=== PATIENT | female | born 1980 | race Caucasian/White ===

== ENCOUNTER 2025-11-18 09:45 | Outpatient (AMB) | payer BC, SELFPAY ==
--- OUTSIDE RECORDS SUMMARY | 2024-12-12 06:30 | XMS_ITS ---
Author Organization [facility] stacey Address [address] [place] [address] Care Team Providers Care Gold Blower Name Role Phone Therese Rodriguez Primary Care Provider [phone] REASON FOR VISIT f/u ADHD Encounters Encounter Location Date Provider Diagnosis [place] [address] [place] [address] 12/12/2024 Therese Rodriguez Plan Of Treatment Next Appt Details Provider Name:Therese Nogueira [facility], 01/22/2026 11:30:00 AM, [address] [place], [address], Provider Name:Therese Nogueira [facility], 04/23/2026 02:00:00 PM, [address] [place], [address], Progress Notes * OCTAVIO ALVAREZDOB: 1980 (45 yo F)Acc No.[id number]:12/12/2024 Progress Note Patient: Jeremy JUAREZOCTAVIO SKELTON Provider: Santa Rodriguez MD :1980 A ge:44 Y S ex:Female Date:12/12/2024 C HN#:[id number] Address:[address], [phone] Subjective: * Chief Complaints: * f /u ADHD Care Plan Details* * Electronic signature of Bea Rodriguez MD on 11/18/2025 at 10:35 AM EST Sign off status: Pending * Provider: Santa Rodriguez MD Date: 0 12/12/2024 Generated for Adriano ramos/Cam/Vika on: 1 01/19/2025 10:35 AM EST
--- OUTSIDE RECORDS SUMMARY | 2025-05-01 09:30 | XMS_ITS ---
Author Organization [facility] Address [address] [place] [address] Care Team Providers Care Laundry Operator Wash Room Name Role Phone MichaelIndiraTherese Primary Care Provider Yazmin RODRIGUEZ Unavailable [phone] REASON FOR VISIT MEDICAL SCIENTIFIC OFFICER BMD Encounters Encounter Location Date Provider Diagnosis [place] [address] [place] [address] 05/01/2025 Yazmin RODRIGUEZ ADHD, combined type F90.2 and Anxiety (unspecified) F41.9 Assessments Encounter Date Diagnosis (ICD Code) Assessment Notes Treatment Notes Treatment Clinical Notes Section Notes 05/01/2025 ADHD, combined type (ICD-10 - F90.2) 05/01/2025 Anxiety (unspecified) (ICD-10 - F41.9) 05/01/2025 Other At least 60 minutes were spent in a face to face interaction with patient conducted by Yazmin Rodriguez [facility]. Please see HPI for full history review and assessment. Pt was oriented to psychiatric care within [facility]. Importance of regular visits and limitations on refills were reviewed. Decision-making was shared with patient and included review of available chart data, discussion of risks and benefits of care plan for suspected diagnosis, and establishment of follow-up plan with precautions to seek immediate medical attention in case of interim treatment failure or adverse developments. Indication for, proper use of, and possible non-target effects of any prescribed treatments were reviewed. All questions were answered. Extensive time spent includes counseling, education, emotional support, patient care coordination, and medical management. Plan Of Treatment Treatment Notes Assessment Notes Other At least 60 minutes were spent in a face to face interaction with patient conducted by YAQUELIN Nolan. Please see HPI for full history review and assessment. Pt was oriented to psychiatric care within [facility]. Importance of regular visits and limitations on refills were reviewed. Decision-making was shared with patient and included review of available chart data, discussion of risks and benefits of care plan for suspected diagnosis, and establishment of follow-up plan with precautions to seek immediate medical attention in case of interim treatment failure or adverse developments. Indication for, proper use of, and possible non-target effects of any prescribed treatments were reviewed. All questions were answered. Extensive time spent includes counseling, education, emotional support, patient care coordination, and medical management. Next Appt Details Provider Name:Therese Black [facility], 01/22/2026 11:30:00 AM, [address] [place], [address], Provider Name:Therese J At [facility], 04/23/2026 02:00:00 PM, [address] [place], [address], History and Physical Notes * HPI (History of Present Illness) Category Sub-Category Detail Notes Category Not es Interim History CC: Past Psychiatric History: Previous outpatient provider: Past Medication Trials: Therapist: Past Psychiatric Hospitalizations: Family psychiatric History: Sleep: Diet: caffeine Exercise: ETOH use: Nicotine use: Substance use: Social History: lives children pets work [employer] Supports: Stressors: 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 ADHD: concentration/focus Anxiety: social phobia, anxiety/panic attacks Mood: PTSD: trauma nightmares, hypervigilance, hyperarousal, flashbacks OCD: intrusive thoughts compulsions Eating Disorder: anorexia, bulimia, binge Bipolar Disorder: grandiosity/sleep decrease/ pressured speech/distractibility/impulsivity Psychosis: hallucinations/delusions/paranoia Previous Suicide Attempts/SIB: (attempts, methods, ideations, plan, preperations, intent) Homicidal Ideation: TBI seizure concussion cardiac history: Past Medical History, medications, and allergies listed in chart reviewed and verified with patient. Progress Notes * JILLIAN ALVAREZ: 1980 (45 yo F)Acc No.[id number]:05/01/2025 Psych-60 Patient: OCTAVIO GARRIDO Provider: Brianne Rodriguez :1980 A ge:44 Y S ex:Female Date:05/01/2025 Address:[address] [place] [address] [place] , [address], [phone] Pcp:Therese Rodriguez Subjective: * Chief Complaints: * N P BMD * HPI: I nterim History: CC: Past Psychiatric History: Previous outpatient provider: Past Medication Trials: Therapist: Past Psychiatric Hospitalizations: Family psychiatric History: Sleep: Diet: caffeine Exercise: ETOH use: Nicotine use: Substance use: Social History: lives children pets work [employer] Supports: Stressors: 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 ADHD: concentration/focus Anxiety: social phobia, anxiety/panic attacks Mood: PTSD: trauma nightmares, hypervigilance, hyperarousal, flashbacks OCD: intrusive thoughts compulsions Eating Disorder: anorexia, bulimia, binge Bipolar Disorder: grandiosity/sleep decrease/ pressured speech/distractibility/impulsivity Psychosis: hallucinations/delusions/paranoia Previous Suicide Attempts/SIB: (attempts, methods, ideations, plan, preperations, intent) Homicidal Ideation: TBI seizure concussion cardiac history: Past Medical History, medications, and allergies listed in chart reviewed and verified with patient. Assessment: * Assessment: 1. A DHD, combined type - F90.2 (Primary) 2 . A nxiety (unspecified) - F41.9 Plan: * Treatment: Billing Information: * Procedure Codes: * Electronic signature of Shruthi RODRIGUEZ , PERPETUAL INVENTORY CLERK on 11/18/2025 at 10:36 AM EST Sign off status: Pending * Provider: Brianne Rodriguez Date: 0 05/01/2025 Generated for Adriano ramos/Cam/Vika on: 01/19/2025 10:36 AM EST
--- OUTSIDE RECORDS SUMMARY | 2025-05-23 10:00 | XMS_ITS ---
Author Organization [facility] stacey Address [address] [place] [address] Care Team Providers Care Airport Duty Manager Name Role Phone Therese Rodriguez Primary Care Provider [phone] Romulo Casiano [phone] REASON FOR VISIT f/u psych Encounters Encounter Location Date Provider Diagnosis [facility] [address] [place] [address] 05/23/2025 Romulo Casiano Plan Of Treatment Next Appt Details Provider Name:Therese Black At [facility], 01/22/2026 11:30:00 AM, [address] [place], [address], Provider Name:Therese Black At [facility], 04/23/2026 02:00:00 PM, [address] [place], [address], Progress Notes * OCTAVIO ALVAREZDOB: 1980 (45 yo F)Acc No.[id number]:05/23/2025 Psych-30 Patient: Jeremy OCTAVIO MANTILLA Provider: Meera Casiano DO :1980 A ge:44 Y S ex:Female Date:05/23/2025 Address:[address] [place] Pcp:Therese Rodriguez Subjective: * Chief Complaints: * F /u psych * Electronic signature of Sally Casiano DO on 11/18/2025 at 10:35 AM EST Sign off status: Pending * Provider: Meera Casiano DO Date: 0 05/23/2025 Generated for Adriano ramos/Cam/Vika on: 1 01/19/2025 10:35 AM EST
--- OUTSIDE RECORDS SUMMARY | 2025-10-21 10:00 | XMS_ITS ---
Author Organization [facility] stacey Address [address] [place] [address] Care Team Providers Care Coating Manager Name Role Phone Therese Rodriguez Primary Care Provider Allergies Allergen (clinical drug ingredient) Drug/Non Drug Allergy documented on EMR Reaction Allergy Type Onset Date Status ADHESIVES (uncoded) burn on skin Allergy Active LATEX SENSITIVE (uncoded) UTI's with catheters; burn sensation on skin Allergy Active zolpidem Ambien drunk dials Drug Allergy Act wendi amoxicillin Amoxicillin nausea & vomiting Drug Allergy Active bacitracin Bacitracin red raised rash Drug Allergy Active eszopiclone Lunesta dizzy, bitter taste, loss of memory Drug Allergy Active Neosporin rash; prevents wound healing Drug Allergy Active paroxetine Paxil diarrhea Drug Allergy Active topiramate Topamax everything taste d off Drug Allergy Active Reason For Referral Reason For bilat paresthesi as and left shoulder weakness Diagnosis 1 Weakness (R53.1) Referral Organization [facility] Pr actice Referring Provider First Name Therese Referring Provider Last Name Michael Referring Provider Speciality Family Pra ctice Referred Provider Manuelito Small Referred Provider Specialty Credit Reporting Clerk General Notes Vaishali Cox 01/2025 12:10:42 PM EST > ref faxed to: [phone] Clinical Notes Name Manuelito Small ecialty Credit Reporting Clerk, Address [address] [place] [address], [address], [place] [address] Provider , , Referral Priority Routine REASON FOR VISIT f/u ADHD, ?hot flashes, ADHD = 38, numbness in bilateral hands, worsening over 1 year, due for covid (checked [facility]), declines Medications Medication SIG (Take, Route, Frequency, Duration) Notes Start Date End Date Status Gabapentin 100 MG Capsule 2 capsule at bedtime Orally Once a day; Duration: 30 days 10/21/2025 Active Estradiol 0.025 MG/24HR Patch Twice Weekly 1 patch to skin Transdermal Two times a Week; Duration: 30 days 10/21/2025 Active Lexapro 5 MG Tablet 1 tablet Orally Once a day; Duration: 90 days 04/25/2025 Active Metoprolol Succinate ER 25 MG Tablet Extended Release 24 Hour TAKE 1 TABLET BY MOUTH EVERY DAY FOR 90 DAYS; Duration: 90 Active Lisinopril 20 MG Tablet TAKE 1 TABLET BY MOUTH EVERY DAY FOR 90 DAYS; Duration: 90 Active Ibuprofen 600 MG Tablet 1 tab(s) orally once a day Active Reglan 10 MG Tablet 1 tab(s) orally 4 ti mes a day (before meals and at bedtime); Duration: 30 day(s) prn migraines Active Vitamin B Complex - Capsule 1 cap Orally intermittently Active Vitamin D-Vitamin K - Capsule as directed Orally intermittently Active Adderall 5 MG Tablet 2 tabs orally 2 times a day; Duration: 30 days As needed 03/07/2024 Active Adderall XR 25 MG Capsule Extended Release 24 Hour 2 cap(s) orally once a day; Duration: 90 days DX ADHD 10/21/2025 Active Gabapentin 100 MG Capsule 2 capsules Orally Once a day Active Social History Social History Additional Details Category Social Info Options Details Social History 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 and sports photography Problems Problem Type SNOMED Code ICD Code Onset Dates Problem Status W/U Status Risk Notes Problem Peripheral vascular disease (001295150) Vasomotor acroparesthesias (I73.89) Active confirmed Problem Menopause (656141987) Menopausal and female climacteric states (N95.1) Active confirmed Vital Signs Temperature 98.7 degrees Fahrenheit 10/21/20 Blood pressure systolic 128 mm Hg 10/21/20 Blood pressure diastolic 70 mm Hg 025 Height 63.5 in 10/21/2025 Weight 152.6 lbs 10/21/2025 BMI 26.6 kg/m2 10/21/2025 Oximetry 97 10/21/2025 Encounters Encounter Location Date Provider Diagnosis [facility] [address] [place] [address] 10/21/2025 Therese Rodriguez Weakness R53.1 ; Vasomotor acroparesthesias I73.89 ; ADHD, combined type F90.2 ; BMI 28.0-28.9, adult Z68.28 and Menopausal and female climacteric states N95.1 Assessments Encounter Date Diagnosis (ICD Code) Assessment Notes Treatment Notes Treatment Clinical Notes Section Notes 10/21/2025 Weakness (ICD-10 - R53.1) ? pinched nerve RUE Chronic Condition stable and controlled. continue same plan with current medication and scheduled reassessment 10/21/2025 Vasomotor acroparesthesias (ICD-10 - I73.89) I am recommending MHT for hormonal therapy perimenopausal Discussed the WHI study and the current understanding of low cardiac risk as long as hormones started within 10 years of menopause. we also discussed We did review FAMHX for ovarian cancer, breast cancer, bleeding or clotting disorders, heart disease. She is regular with her mammograms and plans to continue regularly. no hx clotting or bleeding abnormalities, is active, not a smoker. Discussed the patch which would eliminate the first-pass effect review possible side effects and to call for irregular bleeding or any new symptoms Rx sent for MHT with instructions 10/21/2025 ADHD, combined type (ICD-10 - F90.2) 10/21/2025 BMI 28.0-28.9, adult (ICD-10 - Z68.28) 10/21/2025 Menopausal and female climacteric states (ICD-10 - N95.1) Plan Of Treatment Medication Medication Name Sig Start Date Stop Date Notes Gabapentin 100 MG Capsule 2 capsule at b edtime Orally Once a day; Duration: 30 days 10/21/2025 Estradiol 0.025 MG/24HR Patch Twice Weekly 1 patch to skin Transdermal Two times a Week; Duration: 30 days 10/21/2025 Adderall XR 25 MG Capsule Extended Release 24 Hour 2 cap(s) orally once a day; Duration: 90 days 10/21/2025 DX ADHD Treatment Notes Assessment Notes Weakness ? pinched nerve RUE Chronic Condition stable and controlled. continue same plan with current medication and scheduled reassessment Vasomotor acroparesthesias I am recommending MHT for hormonal therapy perimenopausal Discussed the WHI study and the current understanding of low cardiac risk as long as hormones started within 10 years of menopause. we also discussed We did review FAMHX for ovarian cancer, breast cancer, bleeding or clotting disorders, heart disease. She is regular with her mammograms and plans to continue regularly. no hx clotting or bleeding abnormalities, is active, not a smoker. Discussed the patch which would eliminate the first-pass effect review possible side effects and to call for irregular bleeding or any new symptoms Rx sent for MHT with instructions Referrals Referral Date Details 10/21/2025 10/21/2025, For bila t paresthesias and left shoulder weakness, Manuelito Small Next Appt Details Follow Up: 3 Months fu ADHD? HRT, Reason: Provider Name:Therese Nogueira [facility], 01/22/2026 11:30:00 AM, [address] [place], [address], Provider Name:Therese Nogueira [facility], 04/23/2026 02:00:00 PM, [address] [place], [address], History and Physical Notes * HPI (History of Present Illness) Category Sub-Category Detail Notes Category Not es Cardiology HYPERTENSION Heme/Lymph co episodes of Raynauds Neurology has always had neck pains. getting massages regularly helps some. has had trigger point injections. has numbness in her fingers when it is bad. bilat 4-5 fingers right worse than left. variable Interim History has been having hot flashes lately.. tried stopping the lexapro and it made her worse. she took the leftover gabapentin and restarted the lexapro and the hot flashes are now gone Examination Category Sub-Category Detail Notes Category Not es General Examination HEENT: Head - NC/AT, clear c onjunctiva Neck, Thyroid : supple Lungs: No use of accessory muscles, no audible wheezes, no stridor Extremities: no clubbing, no tonio a General Appearance: Well appearing and i n no acute distress Skin Lips and nail beds p ink Neurologic Exam: non-focal exam Musculoskeletal Normal gait and stat ion Consultation Request Notes Referral Date Referring Provider Referred Provider Not es 10/21/2025 Therese Rodriguez Paul For bila t paresthesias and left shoulder weakness Progress Notes * LUIS GARCIA RAIZAJAHDOB: 1980 (45 yo F)Acc No.[id number]:10/21/2025 Progress Note Patient: OCTAVIO GARRIDO Provider: Santa Rodriguez MD :1980 A ge:45 Y S ex:Female Date:10/21/2025 C HN#:[id number] Address:[address] [place] [address] Subjective: * Chief Complaints: * f /u ADHD, ?hot flashes ADHD = 38Numbness in bilateral hands, worsening over 1 yeardue for covid (checked MIIS-), declines * HPI: I nterim History: has been having hot flashes lately.. tried stopping the lexapro and it made her worse. she took the leftover gabapentin and restarted the lexapro and the hot flashes are now gone. N eurology: has always had neck pains. getting massages regularly helps some. has had trigger point injections. has numbness in her fingers when it is bad. bilat 4-5 fingers right worse than left.? v ariable. C ardiology: c/o HYPERTENSION. c/o BP Monitoring. H cesar/Lymph: co episodes of Raynauds. * Medical History: asthma sx with URI's Migraines Seasonal allergies HTN 2016, restarted 2022 MIRENA in and out 12/2013 RSV and pneumonia 2019 Covid19 09/2022 ruptured L eardrum 08/2023 Medical History Verified * OB History: T otal living children 1 . T otal pregnancies 2 . * Surgical History: L leg debridement of muscle age 13 mole removals - back and R shoulder c- section @ [facility] 11/13/13 laproscopic hysto- has ovaries no cervix-[facility] 01/08/2019 Surgical History verified. * Hospitalization/Major Diagno stic Procedure: cat bites- had rabies series at [facility] 01/2010 @ [facility] 11/12/13 tachycardia - [facility] ER 01/2015 ER Abdominal pain - (patient ate [facility]) 07/2017 ER [facility] Wing- dx with viral URI, ruptured L eardrum 09/26/2023 [facility] ED visit for hypertension 03/28/2024 Hospitalization Verified. * Family History: F ather: alive 61 yrs, Depression, Addiction, suicide attempt in. M other: alive 61 yrs, hypertension and DM, diagnosed with Diabetes, Hypertension. M aternal Grand Mother: breast CA age 63, diagnosed with Cancer. S iblings: sister bipolar and thyroid. 1 sister(s) . .?Family History Verified.. Migraines MGGM- Breast CA- in her 60s - passed 08/29/08 HTN Obesity Father - [place] Mother - pre-diabetes. * Social History: Abiola wilkinson: sees dad ([place]) 2x/yr; Mom in ([place]) yearly.living with in [place]. 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 Smoking Smart Form A re you a:: nonsmoker. S moking C urrent Smoker: No. A lcohol: no alcohol at all, allerrgic. Drug use: No drugs. 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 Children: son Atul. 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 Exercise: nothing formal. Caffeine: Drinks ~ 20-40 oz caffeinated soda per day, mostly work days. Pets: 3 cats, Dogs:1. Social History Verified. 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 * Medications: T akingGabapentin 100 MG Capsule 2 capsules Orally Once a day Vitamin D-Vitamin K - Capsule as directed Orally intermittently Vitamin B Complex - Capsule 1 cap Orally intermittently Reglan 10 MG Tablet 1 tab(s) orally 4 times a day (before meals and at bedtime) , Notes to Pharmacist: prn migrainesIbuprofen 600 MG Tablet 1 tab(s) orally once a day Adderall 5 MG Tablet 2 tabs orally 2 times a day As neededAdderall XR 25 MG Capsule Extended Release 24 Hour 2 cap(s) orally once a day , Notes to Pharmacist: DX ADHDLisinopril 20 MG Tablet TAKE 1 TABLET BY MOUTH EVERY DAY FOR 90 DAYS Metoprolol Succinate ER 25 MG Tablet Extended Release 24 Hour TAKE 1 TABLET BY MOUTH EVERY DAY FOR 90 DAYS Lexapro 5 MG Tablet 1 tablet Orally Once a day Medication List reviewed and reconciled with the patientTaking Gabapentin 100 MG Capsule 2 capsules Orally Once a day Taking Vitamin D-Vitamin K - Capsule as directed Orally intermittently Taking Vitamin B Complex - Capsule 1 cap Orally intermittently Taking Reglan 10 MG Tablet 1 tab(s) orally 4 times a day (before meals and at bedtime) , Notes to Pharmacist: prn migrainesTaking Ibuprofen 600 MG Tablet 1 tab(s) orally once a day Taking Adderall 5 MG Tablet 2 tabs orally 2 times a day As neededTaking Adderall XR 25 MG Capsule Extended Release 24 Hour 2 cap(s) orally once a day , Notes to Pharmacist: DX ADHDTaking Lisinopril 20 MG Tablet TAKE 1 TABLET BY MOUTH EVERY DAY FOR 90 DAYS Taking Metoprolol Succinate ER 25 MG Tablet Extended Release 24 Hour TAKE 1 TABLET BY MOUTH EVERY DAY FOR 90 DAYS Taking Lexapro 5 MG Tablet 1 tablet Orally Once a day Medication List reviewed and reconciled with the patient * Allergies: L unesta: dizzy, bitter taste, loss of memoryNeosporin: rash; prevents wound healingBacitracin: red raised rashADHESIVES: burn on skinTopamax: everything tasted offLATEX SENSITIVE: UTI's with catheters; burn sensation on skinPaxil: diarrheaAmbien: drunk dials - Side EffectsAmoxicillin: nausea & vomitingyesAllergies Verified. Objective: * Vitals: I nitials:jm, Ht: 63.5 in, Wt: 152.6 lbs, BMI: 26.6 Index, Temp: 98.7 F, Temp Route: T, HR: 83 /min, PulseOx: 97, BP: 128/70 mm Hg, ADHD/ADD: 38. * Examination: G eneral Examination: General Appearance: W ell appearing and in no acute distress. S kin L ips and nail beds pink. H EENT: H ead - NC/AT, clear conjunctiva. N jose, Thyroid : s upple. L ungs: N o use of accessory muscles, no audible wheezes, no stridor. E xtremities: n o clubbing, no edema. N eurologic Exam: n on-focal exam. M usculoskeletal N ormal gait and station. Assessment: * Assessment: 1. W eakness - R53.1 (Primary) 2 . V asomotor acroparesthesias - I73.89? 3. A DHD, combined type - F90.2 4 . B MA 28.0-28.9, adult - Z68.28 5 . M enopausal and female climacteric states - N95.1 Plan: * Treatment: 2. V asomotor acroparesthesias Notes: I am recommending MHT for hormonal therapy perimenopausal Discussed the WHI study and the current understanding of low cardiac risk as long as hormones started within 10 years of menopause. we also discussed We did review FAMHX for ovarian cancer, breast cancer, bleeding or clotting disorders, heart disease. She is regular with her mammograms and plans to continue regularly. no hx clotting or bleeding abnormalities, is active, not a smoker. Discussed the patch which would eliminate the first-pass effect review possible side effects and to call for irregular bleeding or any new symptoms Rx sent for MHT with instructions 3. A DHD, combined type Refill Adderall XR Capsule Extended Release 24 Hour, 25 MG, 2 cap(s), orally, once a day, 90 days, 180 Capsule, Refills 0, Notes to Pharmacist: DX ADHD. * Procedure Codes: 9 6127 PHQ9 or ADHD scale * Follow Up: 3 Months fu ADHD?HRT Billing Information: * Visit Code: 84577 Office Visit, Established Pt. * Procedure Codes: 28515 PHQ9 or ADHD scale. Care Plan Details* * Electronic signature of Bea Rodriguez MD on 11/18/2025 at 10:35 AM EST Sign off status: Pending * Provider: Santa Rodriguez MD Date: 12/21/2024 Generated for Adriano ramos/Cam/Vika on: 1 01/19/2025 10:35 AM EST
--- NOTE | 2025-11-18 09:48 | A.PHYSOV_ITS ---
Vital Signs 11/18/25 09:50 Height 5 ft 3 in Weight 115 lb BMI 20.4 Intake Visit Reasons: NPV- b/l paresthesias & left shoulder weakness Intake Note: Patient is a 45 year old female here for initial visit. Patient has been referred for bilateral paresthesia's and left shoulder weakness. Price Changer Required: No Allergies adhesive Allergy (Unknown, Verified 11/11/25 07:42) Unknown amoxicillin Allergy (Unknown, Verified 11/11/25 07:42) Unknown bacitracin Allergy (Unknown, Verified 11/11/25 07:42) Unknown eszopiclone (From Lunesta) Allergy (Unknown, Verified 11/11/25 07:42) Unknown latex Allergy (Unknown, Verified 11/11/25 07:42) Unknown neomycin (From Neosporin ([id number])) Allergy (Unknown, Verified 11/11/25 07:42) Unknown paroxetine (From Paxil) Allergy (Unknown, Verified 11/11/25 07:42) Unknown polymyxin B (From Neosporin ([id number])) Allergy (Unknown, Verified 11/11/25 07:42) Unknown topiramate (From Topamax) Allergy (Unknown, Verified 11/11/25 07:42) Unknown zolpidem (From Ambien) Allergy (Unknown, Verified 11/11/25 07:42) Unknown HPI Comments Details: Ms. Kaela Morales is a 45-year-old female seen consultation today for multiple complaints including periscapular paresthesias. Chronic neck pain. Left shoulder and elbow pain as well as bilateral upper extremity paresthesias. Patient has known carpal tunnel syndrome to the right upper extremity. She denies any specific trauma. She denies any pain today. 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 There are no x-rays. Patient does use [id number] medications including Salonpas for pain control. Symptoms are worse with activity and improved with rest. I reviewed the referring provider's no prior to consultation. Procedure: Right lateral epicondylitis injection 11/18/2025 [facility] Surgical History H/O: hysterectomy Previous section Social History (Updated 11/18/25 @ 09:51 by Isa Agarwal MA) Alcohol intake: current Alcohol intake frequency: does not drink Patient Tobacco Use Status: Never used Tobacco Current occupational status: employed Review of Systems Narrative Neck pain, left shoulder pain, left elbow pain, bilateral upper extremity paresthesias. No incontinence, saddle anesthesia urinary retention. Physical Exam Exam Exam: Cervical Spine: Examination of her cervical spine, there is no visible swelling or deformity. She is tender to bilateral upper trapezius. She is otherwise nontender. Full range of motion of her cervical spine. Special Tests: Axial Compression test: Negative Spurlings test: Negative Lhermitte's sign is Negative Upper Extremities: She is tender to left lateral deltoid and lateral epicondyle. She has full range of motion of her shoulder in all planes. 5/5 rotator cuff strength throughout. Positive Neer test. Negative empty can test. Full range of motion of her elbow wrist and hand. Equal paper conservator strength bilaterally. Neuro: Sensation: Intact to upper extremities bilateral to light touch Strength C5 (Elbow Flexion): 5/5 on the left and 5/5 on the right. C6 (Elbow Ext): 5/5 on the left and 5/5 on the right. C7 (Elbow Ext): 5/5 on the left and 5/5 on the right. C8 (Finger Flex): 5/5 on the left and 5/5 on the right. T1 (Finger Abd/Add): 5/5 on the left and 5/5 on the right. DTR: C5 (Biceps): Left 2 Right 2 C6 (Brachioradialis): Left 2 Right 2 C7 (Triceps): Left 2 Right 2 Calvert sign: Negative No pathologic clonus. No involuntary movement. Vital Signs: BMI result Body Mass Index 20.4 Office Procedures AMB Elbow Injection Elbow Joint injection Procedure Details: Left Lateral Epicondylitis injection: Patient was educated about the risks, complications and benefits of the procedure including but not limited to increased serum glucose, fat atrophy, pigment augmentation, infection, nerve damage, bleeding, tendon/ligament injury and pain. Questions were answered at this time. Verbal consent is obtained and the patient is eager to proceed. Patient was laid supine with the arm across the abdomen and 90 degrees of left elbow flexion with the forearm in pronation the point of maximal tenderness was identified and marked at lateral epicondyle. The patient was cleansed with Betadine over this area. Ethyl chloride was then used to desensitize the skin. Patient was then injected with 20 of Kenalog and 0.5 mL 2% lidocaine. The area was cleansed with an alcohol prep and a Band-Aid was applied. The patient tolerated the procedure well without immediate complication. Elbow Injection : Left Procedure code (CPT) selection complete Office Meds Kenalog 40 mg/mL suspension for injection Performing Provider: YEIMY Rogers [facility] Administered by: YEIMY Rogers on 11/18/25 11:02 Dose Route Admin Location Dispensed Lot Number Expiration Date [facility] Blank Driller 20 mg IM 1 mL [id number] [employer] Total Dispensed Waste 1 mL 50 % lidocaine (PF) 20 mg/mL (2 %) injection solution Performing Provider: YEIMY Rogers Performing [facility] Administered by: YEIMY Rogers on 11/18/25 11:02 Dose Route Admin Location Dispensed Lot Number Expiration Date [facility] Blank Driller 10 mg IM 5 mL [id number] [place] [employer] Total Dispensed Waste 5 mL 90 % Assessment & Plan Assessment & Plan (1) Cervicalgia: Code(s): M54.2 - Cervicalgia Category: Medical (2) Impingement of left shoulder: Code(s): M25.812 - Other specified joint disorders, left shoulder Category: Medical (3) Lateral epicondylitis: Code(s): M77.10 - Lateral epicondylitis, unspecified elbow Category: Medical Qualifiers: Laterality: left Qualified Code(s): M77.12 - Lateral epicondylitis, left elbow (4) Carpal tunnel syndrome: Code(s): G56.00 - Carpal tunnel syndrome, unspecified upper limb Category: Medical Qualifiers: Laterality: bilateral Qualified Code(s): G56.03 - Carpal tunnel syndrome, bilateral upper limbs Plan Ms. Kaela Burnett is a 45-year-old female seen in consultation today for chronic neck, left shoulder impingement, lateral epicondylitis and carpal tunnel syndrome. She was educated about the course were condition and treatment options. She declined physical therapy. Today we reviewed 5 different exercises for each body part that she will perform every other day. Today she consented to lateral epicondylitis injection. She was given post-injection instructions, recommend: Moist heat compresses for 15 minutes up to 5 times daily. Continue wrist extension exercises in lateral epicondylitis strap. She will continue her medications as prescribed. I recommend follow-up in 6 weeks for re-evaluation, if she is not markedly improved we will consider MRI of her cervical spine or EMG testing bilateral upper extremities. I will order x-ray of the cervical spine and left shoulder today. We discussed the benefits of proper nutrition and exercise to maintain a healthy body weight to improve longevity and function. We also discussed the benefits of proper lifting techniques, core strengthening and proper posture. Thank you for allowing me to participate in the care of your patient. Orders: Orders XR shoulder LT min 2V Today M25.519 - Pain in unspecified shoulder XR cervical spine 5V Today M54.2 - Cervicalgia AMB Elbow Injection Today M77.10 - Lateral epicondylitis, unspecified elbow Coding Level of Care Code New Pt Level 4 (81380) Diagnoses Cervicalgia M54.2 Impingement of left shoulder M25.812 Lateral epicondylitis of left elbow M77.12 Laterality: left Bilateral carpal tunnel syndrome G56.03 Laterality: bilateral CPT Codes Elbow Joint injection - Ankle Joint Injection : Left ([id number])
[2025-11-18 09:50] VITALS: BMI 20.4
--- OUTSIDE RECORDS SUMMARY | 2025-11-18 10:35 | XMS_ITS | Clinical Summary ---
Author Organization [facility] Address [address] [place] [address] Care Team Providers Care E Business Consultant Name Role Phone Therese Rodriguez Primary Care Provider [phone] Allergies Active Allergy Reactions Criticality Noted Date Comments Amoxicillin Vomiting 03/28/2024 Latex Rash 03/28/2024 Paroxetine Hcl Diarrhea 03/28/2024 Medications * This document contains information received from the source organization and may not represent a complete record from that organization. albuterol (PROAIR HFA,VENTOLIN HFA) 90 mcg inhaler Inhale 1-2 puffs (90-180 mcg total) by mouth every 4 hours as needed for shortness of breath/wheezin g. 8.5 g 1 08/31/2021 3:45 PM EDT 1 Active metoclopramide (REGLAN) 10 mg tablet Take 1 tablet (10 mg total) by mouth 3 times a day as needed for migraine headache. 90 tablet 07/20/2023 4:07 PM EDT 3 Active metoprolol succinate XL (TOPROL XL) 25 mg tablet Take 25 mg by mouth once a day. Active dextroamphetami ne-amphetamine XR (ADDERALL XR) 20 mg capsule Take 40 mg by mouth every morning. Active Immunizations Immunization Administration Dates Next Due Covid-19 Monovalent Vaccine, Moderna, mRNA, PF 10/09/2021,12/24/2020,11/26/2020 Social History Tobacco Use Types Packs/Day Years Used Date Smoking Tobacco: Never Passive Smoke Exposure: Never Smokeless Tobacco: Never Tobacco Cessation:Counseling Given: Not Answered Comments No Sex and Gender Information Value Date Recorded Sex Assigned at Not on file Legal Sex Female 7:32 AM EDT Gender Identity Not on file Sexual Orientation Not on file Last Filed Vital Signs Vital Sign Reading Time Taken Comments Blood Pressure 177/110 03/28/2024 1:15 PM EDT Pulse 70 03/28/2024 1:15 PM EDT Temperature 36.4 C (97.5 F) 03/28/2024 9:09 AM EDT Respiratory Rate 16 03/28/2024 1:15 PM EDT Oxygen Saturation 100% 03/28/2024 1:15 PM EDT Inhaled Oxygen Concentration - - Weight 68 kg (150 lb) 03/28/2024 9:09 AM EDT Height 160 cm (5' 3 ) 03/28/2024 9:09 AM EDT Body Mass Index 26.57 03/28/2024 9:09 AM EDT Plan of Treatment Health Maintenance Due Date Last Done Comments HIV Screening 1982 Hepatitis C Screening 1982 Varicella Vaccines (2 of 2 - 2-dose childhood series) 1986 11/27/1985 Pneumococcal Vaccine: Pediat mary alice (0-5 Years) and At-Risk Patients (6-50 Years) (2 of 2 - PCV) 11/27/2001 11/27/2000 Mammogram 2022 Alcohol/Substance Use Screening 11/27/2024 Depression Screening and Follow-Up 11/27/2024 Social Drivers of Health Estefania ual Screening 11/27/2024 Influenza Vaccine (#1) 2025 , 08/28/2023, 10/12/2022, Additional history exists COVID-19 Vaccine (2024-2 6 season) 2025 10/24/2022, 10/09/2021, 12/24/2020, Additional history exists DTaP,Tdap,and Td Vaccines (8 - Td or Tdap) 03/07/2034 03/07/2024, 11/05/2013, 04/27/2008, Additional history exists Hepatitis B Vaccines Completed 03/16/2006, 04/15/2005, 09/19/2002, Additional history exists Insurance [facility] PPO/EPO Care Teams E Business Consultant Relationship Specialty Start Date End Date Therese Rodriguez [address] [place] [address] [place] [address] PCP - General Family Medicine 03/24/23
--- OUTSIDE RECORDS SUMMARY | 2025-11-18 10:35 | XMS_ITS | Encounter Summary ---
Author Organization [facility] Address [address] [place] [address] Care Team Providers Care Laundry Aid Name Role Phone Michael Therese J Primary Care Provider [phone]- [phone] Encounter Details Date Type Department Care Team (Late st Contact Info) Description 11/13/2021 myChart Message Intial Department [address] [place] [phone] Mychart, Generic Provider [address] [place] [id number] Questionnaire Submission Social History Tobacco Use Types Packs/Day Years Used Date Smoking Tobacco: Never Assessed Comments Unknown Sex and Gender Information Value Date Recorded Sex Assigned at Not on file Legal Sex Female 7:32 AM EDT Gender Identity Not on file Sexual Orientation Not on file documented as of this encounter Plan of Treatment Not on file documented as of this encounter Visit Diagnoses Not on filedocumented in this encounter Additional Health Concerns Infection Onset Date Last Indicated Resolved Time COVID-19 - Suspected infection 11/15/2021 11/15/2021 11/29/2021 10:33 PM EST documented as of this encounter Care Teams Laundry Aid Relationship Specialty Start Date End Date Therese Rodriguez [address] [facility] [place] [address] PCP - General Family Medicine 03/24/23 documented as of this encounter
--- OUTSIDE RECORDS SUMMARY | 2025-11-18 10:36 | XMS_ITS | Patient Health Record ---
Author Organization [facility] stacey Address [address] [place] [address] Care Team Providers Care Crystal Finisher Name Role Phone Therese Rodriguez Primary Care Provider [phone] DIFRONZO, Yazmin Unavailable [phone] Wetterling, Romulo Unavailable [phone] Allergies Allergen (clinical drug ingredient) Drug/Non Drug [...] Diagnosis 1 Weakness (R53.1) Referral Organization [facility] Pr actice Referring Provider First Name Therese Referring Provider Last Name Michael Referring Provider Speciality Family Pra ctice Referred Provider Manuelito Small Referred Provider Specialty [facility] General Notes Vaishali Cox 01/2025 12:10:42 PM EST > ref faxed to: [phone] Clinical Notes Name Manuelito Small ecialty [place], Address [address] [place] [address], [address], [place] [address] Provider , , Referral Priority Routine Medications Medication SIG (Take, Route, Frequency, Duration) Notes Start Date End Date Status Adderall XR 25 MG Capsule Extended Release 24 Hour 2 cap(s) orally once a day; Duration: 90 days DX ADHD 10/21/2025 Active Ibuprofen 600 MG Tablet 1 tab(s) orally once a day Active Reglan 10 MG Tablet 1 tab(s) orally 4 ti mes a day (before meals and at bedtime); Duration: 30 day(s) prn migraines Active Vitamin B Complex - Capsule 1 cap Orally intermittently Active Vitamin D-Vitamin K - Capsule as directed Orally intermittently Active Gabapentin 100 MG Capsule 2 capsule at bedtime Orally Once a day; Duration: 30 days 10/21/2025 Active Gabapentin 100 MG Capsule 2 capsules Orally Once a day Active Estradiol 0.025 MG/24HR Patch Twice Weekly [...] DAY FOR 90 DAYS; Duration: 90 Active Adderall 5 MG Tablet 2 tabs orally 2 times a day; Duration: 30 days As needed 03/07/2024 Active Immunizations Vaccine Route Administration Date Status Comme nts Rueola titer Unknown 03/17/2006 Administered Influenza Unknown 1982 Administered Influenza Unknown 09/19/2002 Administered Varicella disease history Unknown 11/27/1985 Administered Tdap Adacel,purchased IM Intramuscular 11/05/2013 Administered TDAP >7 PURCHASED (ADACEL) IM Intramuscular 03/07/2024 Administered Td vaccine, state Unknown 06/10/1999 Administered Td vaccine history Unknown 04/27/2008 Administered PPD planted Unknown 04/07/2005 Administered PPD planted Unknown 03/14/2006 Administered PPD planted Unknown 07/29/2006 Administered PPD planted Unknown 07/13/2007 Administered pneumovax vaccine history Unknown 11/27/2000 Administered Negative PPD Read Unknown 07/16/2007 Administered PPD: 0 mm, L forearm Negative PPD Read Unknown 03/13/2008 Administered See S canned doc's for info MMR,state Unknown 10/01/1983 Administered IPV Vaccine; History Unknown 1982 Administered IPV Vaccine; History Unknown 1982 Administered IPV Vaccine; History Unknown 02/08/1983 Administered IPV Vaccine; History Unknown 01/30/1984 Administered IPV Vaccine; History Unknown 07/14/1987 Administered Influenza ,prefilled,(6mo <),pres-free,purch ased IM Intramuscular 11/05/2013 Administered Hepatitis B Vaccine; History Unknown 08/19/2002 Administered Hepatitis B Vaccine; History Unknown 09/19/2002 Administered Hepatitis B Vaccine; History Unknown 04/15/2005 Administered Hepatitis B pedi (0-19yrs), state Unknown 03/16/2006 Administered Fluzone Vaccine; History Unknown 08/31/2016 Administered Fluzone (6mos & up), purchased Unknown 09/03/2006 Administered Flulaval, purchased IM Intramuscular 2010 Administered Office purchase d Flu vaccine Flu Vaccine; History Unknown 11/27/2012 Administered Flu Vaccine; History IM Intramuscular 11/18/2014 Administered Flu Vaccine; History Unknown 08/12/2015 Administered Flu Vaccine; History Unknown 09/06/2017 Administered Flu Vaccine; History Unknown 09/05/2019 Administered Flu Vaccine; History Unknown 08/31/2021 Administered Flu Vaccine; History Unknown 08/28/2023 Administered Flu Vaccine; History Unknown 08/26/2024 Administered Flu Vaccine; History Unknown 08/22/2025 Administered DTap (Tripedia) state Unknown 1982 Administered DTap (Tripedia) state Unknown 1982 Administered DTap (Tripedia) state Unknown 02/08/1983 Administered DTap (Tripedia) state Unknown 01/30/1984 Administered DTap (Tripedia) state Unknown 07/14/1987 Administered COVID-19 Vaccine (Moderna), History Unknown 11/26/2020 Administered Lot # [id number] COVID-19 Vaccine (Moderna), History Unknown 12/24/2020 Administered Lot # [id number] Covid Vaccine Booster (Moderna), History Unknown 10/09/2021 Administered Lot # [id number] COVID Vacc BIVALENT 12+ Pfizer IM Intramuscular 10/24/2022 Administered Social History Social History Additional Details Category Social Info Options Details Social History 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 Health Proxy: gideon melton fiance Nutrition: mostly chicken; loves vegetables; litlle salts/sweets. Education: HS; [employer] for [place]. Health Proxy: gideon desautels, Nutrition: mostly chicken; loves vegetables; litlle salts/sweets. HC Proxy Gideon desautels, Nutrition: mostly chicken; loves vegetables; litlle salts/sweets. HC Proxy Gideon desautels, husb and HC Proxy Gideon desautels, husb and HC Proxy Gideon desautels, Nutrition: mostly chicken; loves vegetables; litlle salts/sweets. 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 crocheting and sports photography HC Proxy Gideon Desautels, 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 HC Proxy Gideon Desautels, 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 HC Proxy Gideon Desautels, 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 HC Proxy Gideon Desautels, 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 HC Proxy Gideon Desautels, 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 HC Proxy Gideon Desautels, 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 HC Proxy Gideon Desautels, husb and 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 crocheting and sports photography HC Proxy Gideon Desautels, 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 crocheting and sports photography HC Proxy Gideon Desautels, 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 crocheting and sports photography HC Proxy Gideon Desautels, 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 HC Proxy Gideon Desautels, husb and HC Proxy Gideon Desautels, 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 HC Proxy Gideon Desautels, husb and HC Proxy Gideon Desautels, husb and HC Proxy Gideon Desautels, husb and HC Proxy Gideon Desautels, husb and HC Proxy Gideon desautels, Nutrition: mostly chicken; loves vegetables; litlle salts/sweets. HC Proxy Gideon Desautels, husb and HC Proxy Gideon desautels, Nutrition: mostly chicken; loves vegetables; litlle salts/sweets. HC Proxy Gideon Desautels, husb and HC Proxy Gideon Desautels, husb and HC Proxy Gideon Desautels, husb and HC Proxy Gideon Desautels, husb and HC Proxy Gideon desautels, husb and HC Proxy Gideon desautels, husb and HC Proxy Gideon desautels, husb and HC Proxy Gideon desautels, Nutrition: mostly chicken; loves vegetables; litlle salts/sweets. HC Proxy Gideon desautels, Nutrition: mostly chicken; loves vegetables; litlle salts/sweets. HC Proxy Gideon melton, Nutrition: mostly chicken; loves vegetables; litlle salts/sweets. HC Proxy Gideon melton Nutrition: mostly chicken; loves vegetables; litlle salts/sweets. HC Proxy Gideon melton Nutrition: mostly chicken; loves vegetables; litlle salts/sweets. HC Proxy antonio Machado Nutrition: mostly chicken; loves vegetables; litlle salts/sweets. Education: HS; [employer] for [place]. Health Proxy: gideon melton, Nutrition: mostly chicken; loves vegetables; litlle salts/sweets. HC Proxy antonio Machado Nutrition: mostly chicken; loves vegetables; litlle salts/sweets. Education: HS; [employer] for [place]. Health Proxy: antonio machado Nutrition: mostly chicken; loves vegetables; litlle salts/sweets. Education: HS; [employer] for [place]. Health Proxy: antonio machado Nutrition: mostly chicken; loves vegetables; litlle salts/sweets. HC Proxy antonio Machado Nutrition: mostly chicken; loves vegetables; litlle salts/sweets. Education: HS; [employer] for [place]. Health Proxy: antonio machado Nutrition: mostly chicken; loves vegetables; litlle salts/sweets. Education: HS; [employer] for [place]. Health Proxy: would be boyfriend's mother. Nutrition: mostly chicken; loves vegetables; litlle salts/sweets. Calcium: Inadequate. Education: HS; [employer] for [place]. Health Proxy: gabriele machado Nutrition: mostly chicken; loves vegetables; litlle salts/sweets. Education: HS; [employer] for [place]. Health Proxy: gabriele machado Nutrition: mostly chicken; loves vegetables; litlle salts/sweets. Education: HS; [employer] for [place]. Health Proxy: gabriele machado Nutrition: mostly chicken; loves vegetables; litlle salts/sweets. Education: HS; [employer] for [place]. Health Proxy: gabriele machado Nutrition: mostly chicken; loves vegetables; litlle salts/sweets. HC Proxy Gideon melton, Nutrition: mostly chicken; loves vegetables; litlle salts/sweets. Education: HS; [employer] for [place]. Health Proxy: gabriele machado Nutrition: mostly chicken; loves vegetables; litlle salts/sweets. Education: HS; [employer] for [place]. Health Proxy: gabriele machado Nutrition: mostly chicken; loves vegetables; litlle salts/sweets. Education: HS; [employer] for [place]. Health Proxy: gabriele machado Nutrition: mostly chicken; loves vegetables; litlle salts/sweets. 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 Problems Problem Type SNOMED Code ICD Code Onset Dates Problem Status W/U Status Risk Notes Problem Anxiety (finding) (94083357) Anxiety (unspecified) (F41.9) Active confirmed Problem Neck pain (18249423) Pain Neck (M54.2) Active confirmed Problem Mild intermittent asthma (119526905) Asthma Mild intermittent, uncomplicated (J45.20) Active confirmed Problem Rosacea (006472464) Rosacea, unspecified (L71.9) Active confirmed Problem Menopause (594744807) Menopausal and female climacteric states (N95.1) Active confirmed Problem Body mass index 25-29 - overweight (677946671) BMI 28.0-28.9, adult (Z68.28) Active confirmed Problem Hysterectomy (390422867) Acquired absence of both cervix and uterus (Z90.710) Active confirmed Problem Attention deficit hyperactivity disorder (330999243) ADHD, combined type (F90.2) Active confirmed Problem Refractory migraine (disorder) (535518095) Other migraine, intractable, without status migrainosus (G43.819) Active confirmed Problem Hypertension (01558394) HTN (I10) Active confirmed Problem Asthma (492067283) Asthma NOS (J45.998) Active confirmed Problem Anemia (220854911) Anemia NOS (D64.9) Active confirmed Problem Peripheral vascular disease (149133978) Vasomotor acroparesthesias (I73.89) Active confirmed Problem Vitamin D deficiency (80293975) Hypovitaminosis D (E55.9) Active confirmed Vital Signs Temperature 98.7 degrees Fahrenheit 10/21/2025 Blood pressure diastolic 70 mm Hg 10/21/2025 Oximetry 97 10/21/2025 Height 63.5 in 10/21/2025 Blood pressure systolic 128 mm Hg 10/21/2025 Weight 152.6 lbs 10/21/2025 BMI 26.6 kg/m2 10/21/2025 Encounters Encounter Location Date Provider Diagnosis [place] [address] [place] [address] 10/21/2025 Therese Rodriguez Weakness R53.1 ; Vasomotor acroparesthesias I73.89 ; ADHD, combined type F90.2 ; BMI 28.0-28.9, adult Z68.28 and Menopausal and female climacteric states N95.[address] [address] 12/25/2024 Therese Rodriguez ADHD, combined type F90.2 ; Influenza A J09.X9 ; Pain back M54.89 and Fatigue R53.[address] [facility] [address] [place] [address] 02/26/2025 Therese Rodriguez ADHD, combined type F90.2 ; Pain Neck M54.2 ; Headache, unspecified R51.9 and HTN I10 [place] [address] [place] [address] 04/03/2025 Therese Rodriguez CPE Z00.00 ; Asthma Mild intermittent, uncomplicated J45.20 ; Anxiety (unspecified) F41.9 ; Fatigue R53.83 ; HTN I10 ; ADHD, combined type F90.2 ; Anemia NOS D64.9 and Hypovitaminosis D E55.9 [place] [address] [place] [address] 04/25/2025 Romulo Wetterling Anxiety (unspecified ) F41.[address] [facility] [address] [place] [address] 07/02/2025 Therese Rodriguez ADHD, combined type F90.2 ; Fatigue R53.83 ; Anxiety (unspecified) F41.9 and HTN I10 [facility] [address] [place] [address] 12/25/2024 Therese Rodriguez [place] [address] [place] [address] 04/25/2025 Therese Rodriguez [place] [address] [place] [address] 06/13/2025 Therese Rodriguez [facility] [address] [place] [address] [facility] type F90.2 Assessments Encounter Date Diagnosis (ICD Code) Assessment Notes Treatment Notes Treatment Clinical Notes Section Notes 12/25/2024 Influenza A (ICD-10 - J09.X9) review care and contagion 12/25/2024 ADHD, combined type (ICD-10 - F90.2) not adequately controlled. increase dose 02/26/2025 Pain Neck (ICD-10 - M54.2) 02/26/2025 ADHD, combined type (ICD-10 - F90.2) 04/03/2025 CPE (ICD-10 - Z00.00) 04/03/2025 Asthma Mild intermittent, uncomplicated (ICD-10 - J45.20) 04/25/2025 Anxiety (unspecified) (ICD-10 - F41.9) Assessment: Patient with increase in anxiety, fatigue, insomnia in the setting of challenging family role dynamics. Of note, documentation uncelar as to whether patient's ovaries were removed in hysterectomy several years ago (different documents say different things). In any case, patient with FH early menopause, and may have perimenopausal symptoms in addition to anxiety and burnout. - Will touch base with PCP about possible menopause - After discussion of R/B/A, will start Lexapro 5 mg daily - Discussed value of individual and perhaps family therapy to address her anxiety and the challenging dynamics of her current role in the family - f/u 1 mos Notes: Spent a total of 60 minutes on this new patient appointment. Time spent includes emotional or psychosocial support, counseling, and coordination of care. Decision-making was shared with patient and included review of available chart data, discussion of risks and benefits of care plan for suspected diagnosis, and establishment of follow-up plan with precautions to seek immediate medical attention in case of interim treatment failure or adverse developments. Indication for, proper use of, and possible non-target effects of any prescribed treatments were reviewed. All questions were answered. 07/02/2025 ADHD, combined type (ICD-10 - F90.2) Chronic Condition stable and controlled. continue same plan with current medication and scheduled reassessment 07/02/2025 Fatigue (ICD-10 - R53.83) overall coping well. discuss stressful job situaton and other options 06/02/2025 ADHD, combined type (ICD-10 - F90.2) 10/21/2025 Weakness (ICD-10 - R53.1) ? pinched [...] 10/21/2025 ADHD, combined type (ICD-10 - F90.2) 12/25/2024 Pain back (ICD-10 - M54.89) will start PT 07/02/2025 Anxiety (unspecified) (ICD-10 - F41.9) better on lexapro 02/26/2025 Headache, unspecified (ICD-10 - R51.9) 04/03/2025 Anxiety (unspecified) (ICD-10 - F41.9) 02/26/2025 HTN (ICD-10 - I10) 12/25/2024 Fatigue (ICD-10 - R53.83) discuss self care and coping w stress 07/02/2025 HTN (ICD-10 - I10) Chronic Condition stable and controlled. continue same plan with current medication and scheduled reassessment 04/03/2025 Fatigue (ICD-10 - R53.83) 10/21/2025 BMI 28.0-28.9, adult (ICD-10 - Z68.28) 10/21/2025 Menopausal and female climacteric states (ICD-10 - N95.1) 04/03/2025 HTN (ICD-10 - I10) 04/03/2025 ADHD, combined type (ICD-10 - F90.2) 04/03/2025 Anemia NOS (ICD-10 - D64.9) 04/03/2025 Hypovitaminosis D (ICD-10 - E55.9) Plan Of Treatment Pending Test Test Name Order Date Spirometry 12/02/2015 Spirometry 12/06/2016 Spirometry 12/26/2018 Spirometry 03/07/2024 Spirometry 04/01/2015 gayle 04/03/2025 sleep study 06/03/2012 -lamictal 01/09/2012 Exercise Treadmill Stress Test 4 -Pap Smear 09/10/2009 PAP, cervical, & GC/Chlamydi a AMP DNA probe from [employer]; HPV Hybrid Capture High Risk DNA Probe ( 12/06/2016 [place] Multiplex with Reflex to 11 Antibody [place] -[id number] 03/07/2024 FERRITIN 04/03/2025 -10-HYDROXYCARBAZEPINE 06/03/2012 stool: FECAL LEUKOCYTE STAIN 04/09/2015 -LIPID PANEL, FASTING 01/09/2012 COMPREHENSIVE METABOLIC PANL -14624 02/25 COMPREHENSIVE METABOLIC PANL -87107 05/0 06/2025 LIPID PANEL 04/03/2025 LIPID PANEL 03/07/2024 X ray : Lumbosacral Spine 11/14/2024 Stress Treadmill Test 03/29/2024 FERRITIN 12/13/2017 HSCRP 09/19/2023 COMPREHENSIVE METABOLIC PANL 09/19/2023 COMPREHENSIVE METABOLIC PANL 04/09/2015 LIPID PANEL 12/13/2017 LIPID PANEL 09/19/2023 TSH 12/13/2017 Vitamin D25 OH 12/13/2017 Vitamin D25 OH 04/03/2025 CBC 09/19/2023 CBC 04/09/2015 CBC AUTO DIFF 12/13/2017 CRP 04/09/2015 stool: C.DIFFICILE TOXIN 04/09/2015 STOOL CULTURE 04/09/2015 Anti-[place] ([place] [address]) 4 Ultrasound : Abdomen RUQ 12/18/2017 MAGNESIUM, RBC 04/03/2025 ZINC, RBC 04/03/2025 CBC NO DIFF - 1759 04/03/2025 TSH 04/03/2025 TSH 03/07/2024 Next Appt Details Provider Name:Therese Black [facility], 01/22/2026 11:30:00 AM, [address] [place], [address], Provider Name:Therese Black At [facility], 04/23/2026 02:00:00 PM, [address] , [place], [address], Insurance Providers Payer Name Payer Address Payer Phone Subscriber Number Group Number Insured Name Patient Relationship to Insured Coverage Start Date Coverage End Date [employer] PPO [address] [place] [address] [id number] OCTAVIO ALVAREZ Self - patient is the insured Medical (General) History Medical History History ICD Code asthma sx with URI's migraines seasonal allergies HTN 2016, restarted 2022 MIRENA in and out 12/2013 RSV and pneumonia 2019 covid19 09/2022 ruptured L eardrum 08/2023 Surgical History Surgery Date(Month/Year) L leg debridement of muscle age 13 mole removals - back and R shoulder c- section @ [facility] 11/13/13 laproscopic hysto- has ovaries no cervix -[facility] 01/08/2019 Hospitalization History Reason Date(Month/Year) [facility] ED visit for hypertension 03/28/2024 ER [facility]- dx with viral URI, rup tured L eardrum 09/26/2023 ER Abdominal pain - (patient ate bad piz za) 07/2017 tachycardia - [facility] ER 01/2015 @ [facility] 11/12/13 cat bites- had rabies series at [facility] 01/2010
== END 2025-11-18 10:25 | disposition home or self-care (01) ==
LOC: HO.HPHYS 09:46
PROVIDERS: PCP Family Medicine; Visit Provider Physician Assistant
DX: M54.2 Cervicalgia (principal); M25.812 Other specified joint disorders, left shoulder; M77.12 Lateral epicondylitis, left elbow; G56.03 Carpal tunnel syndrome, bilateral upper limbs
CPT/HCPCS: 20550; 99204

== ENCOUNTER → 2025-11-18 09:45 | Outpatient (BNVA) | payer BC, SELFPAY | PROVIDERS: PCP Family Medicine; Visit Provider Physician Assistant | DX: M77.12 Lateral epicondylitis, left elbow (principal); M54.2 Cervicalgia; M25.812 Other specified joint disorders, left shoulder; G89.29 Other chronic pain; G56.03 Carpal tunnel syndrome, bilateral upper limbs | CPT/HCPCS: 20550; J2003; J3301 ==